=== PATIENT | male | born 1980 | race Caucasian/White ===

== ENCOUNTER 2019-12-20 16:45 | Emergency (ER) | payer OTHER ==
[~2019-12-20] VITALS: Ht 180.3 cm; Wt 95.5 kg
[2019-12-20 17:15] VITALS: BP 133/93; TEMP 98.3
[2019-12-20] MEDS ORDERED: FLEXERIL 1010 MG/TAB PO (19:34)
[2019-12-20 19:52] VITALS: PULSE 73
== END 2019-12-20 19:52 | disposition home or self-care (01) ==
LOC: COL.ER 16:45
DX: S20.229A Contusion of unspecified back wall of thorax, initial encounter (principal); W19.XXXA Unspecified fall, initial encounter

== ENCOUNTER → 2020-02-09 | Outpatient (CLI) | payer OTHER ==
[~2020-02-09] MED LIST: FLEXERIL 1010 MG/TAB PO
== END ==
LOC: COL.RAD 02-07 08:15
DX: R94.5 Abnormal results of liver function studies (principal)

== ENCOUNTER 2021-07-27 07:49 | Day surgery (SDC) | payer OTHER ==
[2021-07-27] VITALS (7 sets, daily range): BP systolic 107–123; BP diastolic 56–82; PULSE 53–62; TEMP 98.2–98.6
[~2021-07-27] VITALS: Ht 180.3 cm; Wt 90.9 kg
[~2021-07-27 07:49] MED LIST changes: +CELEXA 20MG20 MG/TAB PO; +PRINIVIL10 MG PO
[2021-07-27] MEDS ORDERED: DESYREL 50MG50 MG PO (08:44)
[2021-07-27] MEDS ORDERED: NORCO 325 MG-51 TAB PO (08:45)
--- NOTE | 2021-07-27 10:55 | NUR ---
Patient back from OR. Alert and oriented x 3. Denies pain at this time. States mild burning. Patient up to restroom with SBA, steady gait. Post op VSS. And post op fluids infusing at this time. Spouse at bedside.
--- NOTE | 2021-07-27 13:30 | NUR ---
Discharge education provided to patient. Educated on when to call provider and follow up appointment on thursday. Educated on increasing fluid intake. All questions answered. INT discontinued to left hand.
== END 2021-07-27 13:30 | disposition home or self-care (01) ==
LOC: SDCO 07:49 → SURG 07:50 → SDCO 13:30
DX: N20.1 Calculus of ureter (principal); Z87.891 Personal history of nicotine dependence; Z79.899 Other long term (current) drug therapy; Z79.891 Long term (current) use of opiate analgesic; I10 Essential (primary) hypertension; G89.29 Other chronic pain; F41.9 Anxiety disorder, unspecified; F32.9 Major depressive disorder, single episode, unspecified; M54.9 Dorsalgia, unspecified; F43.10 Post-traumatic stress disorder, unspecified
CPT/HCPCS: OP; C1769; C2617; J0690; J2405; J2704; J3010; J7120; Q9967

== ENCOUNTER → 2021-11-01 | Outpatient (CLI) | payer OTHER ==
[~2021-11-01] MED LIST changes: +DESYREL 50MG50 MG PO; +NORCO 325 MG-51 TAB PO
== END ==
LOC: COL.RAD 09:00
DX: Z02.71 Encounter for disability determination (principal); M54.50 Low back pain, unspecified

== ENCOUNTER 2022-04-07 15:41 | Emergency (ER) | payer OTHER ==
[~2022-04-07] VITALS: Ht 180.3 cm; Wt 90.9 kg
[2022-04-07 16:08] VITALS: TEMP 98.2
[2022-04-07 17:30] LABS: BASO % 0.5 % (0.0-2.0); EOS # 0.2 K/mm3 (0.0-0.7); GRAN # 4.9 K/mm3 (1.4-6.5); GRAN % 62.1 % (42.2-75.2); HEMATOCRIT 44.5 % (42.0-52.0); HEMOGLOBIN 15.3 g/dl (13.5-18.0); LYMPH % 25.9 % (20.0-51.0); MEAN CELL VOLUME 89 fl (80.0-100.0); MEAN CORPUSCULAR HEMOGLOBIN 30 pg (27-31); MEAN CORPUSCULAR HGB CONC 34 g/dl (33.0-37.0); MEAN PLATELET VOLUME 9.5 fl (7.4-10.4); MONO # 0.7 K/mm3 (0.1-0.6); MONO % 8.5 % (1.7-9.3); PLATELET COUNT 313 K/mm3 (130-400); RED BLOOD COUNT 5.03 M/mm3 (4.20-5.60); REDCELL DISTRIBUTION WIDTH-CV 12.1 % (11.5-14.5)
[2022-04-07 17:48] LABS: ALBUMIN 4.1 gm/dL (3.5-5.0); BILIRUBIN,TOTAL 0.4 mg/dL (0.2-1.2); CALCIUM 9.3 mg/dL (8.4-10.2); CREATININE, serum 0.97 mg/dL (0.72-1.25); POTASSIUM 3.9 mmol/L (3.5-4.5); TOTAL PROTEIN 7.2 gm/dL (6.2-8.1)
[2022-04-07 18:08] LABS: TSH w REFLEX 2.027 uIU/mL (0.350-4.940)
[2022-04-07 20:00] VITALS: BP 129/75; PULSE 71
== END 2022-04-07 20:01 | disposition home or self-care (01) ==
LOC: COL.ER 15:41
PROVIDERS: Emergency Medicine
DX: R51.9 Headache, unspecified (principal); Z28.310 Unvaccinated for COVID-19

== ENCOUNTER 2022-10-08 11:08 | Emergency (ER) | payer OTHER ==
[~2022-10-08] VITALS: Ht 180.3 cm; Wt 93.2 kg
[2022-10-08 11:15] VITALS: TEMP 97.5
[2022-10-08 13:10] VITALS: BP 129/79; PULSE 71
== END 2022-10-08 13:14 | disposition home or self-care (01) ==
LOC: COL.ER 11:08
DX: S06.0X0A Concussion without loss of consciousness, initial encounter (principal); W22.8XXA Striking against or struck by other objects, initial encounter

== ENCOUNTER 2023-02-18 11:46 | Emergency (ER) | payer OTHER ==
[~2023-02-18] VITALS: Ht 180.3 cm; Wt 95.5 kg
[2023-02-18 12:03] VITALS: TEMP 97
[2023-02-18 12:44] VITALS: BP 132/88; PULSE 71
[2023-02-18] MEDS ORDERED: PREDNISONE20 MG PO (17:36)
== END 2023-02-18 12:44 | disposition home or self-care (01) ==
LOC: COL.ER 11:46
DX: T78.40XA Allergy, unspecified, initial encounter (principal); Z28.310 Unvaccinated for COVID-19
CPT/HCPCS: J7512

== ENCOUNTER 2024-08-27 14:27 | Emergency (ER) | payer OTHER ==
[~2024-08-27] VITALS: Ht 180.3 cm; Wt 97.7 kg
[~2024-08-27 14:27] MED LIST changes: +PREDNISONE20 MG PO
[2024-08-27] MEDS ORDERED: Ketorolac 15 MG/ML VIAL IV ONE (15:00)
[2024-08-27 15:28] LABS: BASO # 0.1 K/mm3 (0.0-0.2); BASO % 0.7 % (0.0-2.0); EOS # 0.3 K/mm3 (0.0-0.7); EOS % 3.3 % (0.0-4.0); GRAN # 6.7 K/mm3 (1.4-6.5); GRAN % 63.9 % (42.2-75.2); HEMATOCRIT 45.5 % (42.0-52.0); HEMOGLOBIN 15.8 g/dl (13.5-18.0); LYMPH # 2.5 K/mm3 (1.2-3.4); LYMPH % 23.9 % (20.0-51.0); MEAN CELL VOLUME 87 fl (80.0-100.0); MEAN CORPUSCULAR HEMOGLOBIN 30 pg (27-31); MEAN CORPUSCULAR HGB CONC 35 g/dl (33.0-37.0); MEAN PLATELET VOLUME 9.7 fl (7.4-10.4); MONO # 0.8 K/mm3 (0.1-0.6); MONO % 7.7 % (1.7-9.3); PLATELET COUNT 331 K/mm3 (130-400); RED BLOOD COUNT 5.24 M/mm3 (4.20-5.60); REDCELL DISTRIBUTION WIDTH-CV 11.9 % (11.5-14.5)
[2024-08-27 15:56] LABS: ALBUMIN 3.9 g/dL (3.5-5.0); BILIRUBIN,TOTAL 0.5 mg/dL (0.2-1.2); CALCIUM 10.1 mg/dL (8.4-10.2); CREATININE, serum 1.04 mg/dL (0.72-1.25); TOTAL PROTEIN 7.2 g/dl (6.2-8.1)
[2024-08-27 16:02] LABS: TROPONIN-I 0.013 ng/mL (0.00-0.033)
[2024-08-27] MEDS ORDERED: Iohexol 300 - 100 ML VIAL IV ONE (16:02)
[2024-08-27] MEDS ORDERED: NS 100 ML IV ONE (16:03)
[2024-08-27 16:28] LABS: COLLECTION METHOD CLEAN CATCH
[2024-08-27 16:42] LABS: URINE APPEARANCE CLEAR (CLEAR/HAZY); URINE BLOOD 2+ (NEGATIVE); URINE COLOR YELLOW (YELLOW); URINE GLUCOSE NEGATIVE (NEGATIVE); URINE KETONE NEGATIVE (NEGATIVE); URINE NITRATE NEGATIVE (NEGATIVE); URINE PROTEIN(semi-quant) NEGATIVE (NEGATIVE); URINE UROBILINOGEN 0.2 E.U/dL (0.2-1.0)
[2024-08-27] MEDS ORDERED: NORCO 325 MG-51 TAB PO (17:46)
[2024-08-27] MEDS ORDERED: FLOMAX 0.40.4 MG/CAP PO (17:46)
[2024-08-27 17:53] VITALS: BP 149/97; PULSE 74; TEMP 98.3
[2024-08-28] MEDS ORDERED: NORCO 325 MG-51 TAB PO (12:14)
[2024-08-28] MEDS ORDERED: FLOMAX 0.40.4 MG/CAP PO (12:14)
== END 2024-08-27 17:57 | disposition home or self-care (01) ==
LOC: COL.ER 14:27
PROVIDERS: Emergency Medicine
DX: N20.2 Calculus of kidney with calculus of ureter (principal); Z98.890 Other specified postprocedural states
CPT/HCPCS: J1885; Q9967